=== PATIENT | female | born 1965 | race African-American/Black ===

== ENCOUNTER 2017-01-29 22:28 | Emergency (ER) | payer MEDICARE, MEDICAID | END 2017-01-30 00:48 | disposition home or self-care (01) | LOC: D.ER 22:28 | DX: S70.01XA Contusion of right hip, initial encounter (principal); V43.52XA Car driver injured in collision with other type car in traffic accident, initial encounter; Y93.89 Activity, other specified; Y92.410 Unspecified street and highway as the place of occurrence of the external cause; S29.012A Strain of muscle and tendon of back wall of thorax, initial encounter; E11.9 Type 2 diabetes mellitus without complications; I10 Essential (primary) hypertension; F17.200 Nicotine dependence, unspecified, uncomplicated ==

== ENCOUNTER 2017-02-27 12:12 | Emergency (ER) | payer MEDICARE, MEDICAID | END 2017-02-27 14:44 | disposition home or self-care (01) | LOC: D.ER 12:12 | DX: M48.54XA Collapsed vertebra, not elsewhere classified, thoracic region, initial encounter for fracture (principal); E11.9 Type 2 diabetes mellitus without complications; I10 Essential (primary) hypertension; F17.200 Nicotine dependence, unspecified, uncomplicated ==

== ENCOUNTER 2017-03-13 10:35 | Emergency (ER) | payer MEDICARE | END 2017-03-13 10:44 | disposition left against medical advice (07) | LOC: D.ER 10:35 | DX: Z02.9 Encounter for administrative examinations, unspecified (principal) ==

== ENCOUNTER 2017-03-13 13:29 | Emergency (ER) | payer MEDICARE | END 2017-03-13 13:44 | disposition left against medical advice (07) | LOC: D.ER 13:29 | DX: Z02.9 Encounter for administrative examinations, unspecified (principal) ==